=== PATIENT | female | born 1970 | race African-American/Black ===

== ENCOUNTER 2022-06-02 07:49 | Day surgery (SDC) | payer OTHER ==
[2022-05-30 14:11] VITALS: BMI 31.6
[2022-06-02] MEDS ORDERED: PROPOFOL 120 ML ONE (07:56)
[2022-06-02 10:00] VITALS: TEMP 97.9
[2022-06-02 10:02] VITALS: BP 101/65; PULSE 56; RESP 18
== END 2022-06-02 10:11 | disposition home or self-care (01) ==
LOC: FASU-ENDO 07:49
PROVIDERS: ATTEND Internal Medicine Gastroenterology
PROC: 0DJD8ZZ Inspection of Lower Intestinal Tract, Via Natural or Artificial Opening Endoscopic (ICD-10-PCS; principal; 2022-06-02 09:07)
DX: Z12.11 Encounter for screening for malignant neoplasm of colon (principal)